=== PATIENT | male | born 1970 | race Caucasian/White ===

== ENCOUNTER 2017-03-24 04:03 | Inpatient (IN) | payer BC ==
[2017-03-24 07:24] LABS: #Eosinphils 0.4 thou/uL (0.0-0.7); #Lymphocytes 1.7 thou/uL (1.20-3.40); #Monocytes 0.7 thou/uL (0.11-0.59); #Neutrophils 11.5 thou/uL (1.40-6.50); %Basophils 0.3 % (0.0-1.0); %Eosinophils 2.8 % (0.0-10.0); %Monocytes 4.9 % (0.0-10.0); Hematocrit 42.4 % (42.0-52.0); Mean Platelet Volume 6.2 fL (7.4-10.4); Red Blood Cell (RBC) Count 4.35 mill/uL (4.70-6.10); White Blood Cell (WBC) Count 14.4 thou/uL (4.8-10.8)
[2017-03-24 07:36] LABS: Lactic Acid - Sepsis 0.8 mmol/L (0.5-2.2)
[2017-03-24 07:43] LABS: ALT (SGPT) 8 U/L (8-55); AST (SGOT) 11 U/L (5-34); Alkaline Phosphatase 113 U/L (40-150); Anion Gap 10 mmol/L (10-20); BUN (Urea Nitrogen) 8 mg/dL (8.9-20.6); Bilirubin, Total 0.4 mg/dL (0.2-1.2); Calc. Creatinine Clearance 0 mL/min (70-130); Calcium 9.1 mg/dL (7.8-10.44); Carbon Dioxide 23 mmol/L (22-29); Chloride 107 mmol/L (98-107); Estimated GFR-MDRD Greater than 90; Globulin 2.8 g/dL (2.4-3.5); Magnesium 1.9 mg/dL (1.6-2.6); Protein, Total 6.5 g/dL (6.0-8.3)
[2017-03-24 07:45] LABS: Troponin I Less than 0.010 ng/mL (< 0.028)
[2017-03-24] MEDS ORDERED: Piperacillin/Tazobactam 3.375 GM in Sodium Chloride 0.9% 100 ML IVPB ONE (07:45)
[2017-03-24] MEDS ORDERED: Morphine 4 MG/ML VIAL ONE (07:48)
[2017-03-24 08:23] LABS: Bilirubin Negative (Negative); Blood, Urine Negative (Negative); Glucose, Urine (Dipstick) Negative (Negative); Ketone, Urine Negative (Negative); Nitrite Negative (Negative); Protein, Urine (Dipstick) Negative (Neg-Trace); Urobilinogen 0.2 mg/dL (0.2-1.0)
[2017-03-24] MEDS ORDERED: Ondansetron HCl/PF 4 MG/2 ML Vial IVP PRN (09:38)
[2017-03-24] MEDS ORDERED: Enoxaparin Sodium 40 MG/0.4 ML SYRINGE SC SCH (10:30)
--- NOTE | 2017-03-24 13:20 | HP ---
DATE OF ADMISSION: 03/24/2017 CHIEF COMPLAINT: Abdominal pain. HISTORY OF PRESENT ILLNESS: The patient is a 46-year-old male, who is admitted to the hosp ital with acute onset of abdominal pain associated with some nausea, no vomiting since yesterday. He never had this kind of pain before according to him. He has a history of ulcerative colitis, but ac cording to him, he is under control at this point. He felt feverish for the last day or so. He marianna es any chills. He is denying any chest pain. The pain started in the epigastric area and it moved t o the left side of the abdomen. It was rated at severity of 10 and now is down to approximately 2-3. He did not vomit. He did not have any out of ordinary bowel movement changes since he has history of ulcerative colitis. PAST MEDICAL HISTORY: Positive for: 1. Ulcerative colitis. 2. History of Ping-Parkinson syndrome. PAST SURGICAL HISTORY: None. SOCIAL HISTORY: He denies any alcohol use, cigarette smoking, or illicit drug use. FAMILY HISTORY: Mother had breast cancer. Father is healthy. Both of them are alive. MEDICATIONS: Lialda 1.2 grams 2 tablets once a day, azathioprine 75 mg once a day, sertraline 25 mg once a day, and Effexor 25 mg once a day. ALLERGIES: None. REVIEW OF SYSTEMS: Fourteen systems were reviewed and they are only positive for those symptoms ment ioned in HPI. PHYSICAL EXAMINATION: GENERAL: He is in some pain during my evaluation. He is somewhat uncomfortable. HEAD: Atraumatic, normocephalic. VITAL SIGNS: His blood pressure is 152/106, his pulse oximetry is 97% on room air, his pulse is 87. EYES: PERRLA. Conjunctivae pinkish. ENT: Oral mucosa is somewhat dry. NECK: Supple, no lymphadenopathy. LUNGS: Clear. HEART: S1, S2 normal. No S3, no S4, no murmur. ABDOMEN: Soft. Abdomen is distended, somewhat tympanic in the right side, and there is some tendern ess in the left side of the abdomen on deeper palpation. There is mild guarding in this area. Bowel sounds are very active. EXTREMITIES: No clubbing, cyanosis, or edema. NEUROLOGIC: He is alert and oriented x4. There are not any sensorimotor deficits present. Cranial nerves are intact. LABORATORY AND X-RAY FINDINGS: Showed white count of 14.4, hemoglobin 14.5, hematocrit 42.4, platele t count is 298,000, neutrophils 79.9. Chemistry showed normal electrolytes, BUN of 8, creatinine 0.8 6, lactic acid was elevated at [facility] where he presented originally to and where he was transferred from to our facility. Repeated lactic acid in our facility was down to 0.8. His CK-MB was 0.6 and troponin I less than 0.010. Urinalysis was not done. EKG showed normal sinus rhy thm with a ventricular rate of 75. No ischemic changes. CT of the abdomen was done and it showed so me cholelithiasis, and mesenteric panniculitis. IMPRESSION: 1. Abdominal pain in a setting of patients with ulcerative colitis. It is unclear whether this is s omehow related to stones, which were found in the biliary tree. This is related to his ulcerative co litis. 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 The patient was given IV fluids a nd started on Zosyn. The plan is to continue both. He will be on normal saline 100 mL per hour and Zosyn 3.375 grams every 6 hours. I will obtain GI consultation with Dr. Corey, who is covering for Dr. Ga, his primary GI doctor. We will keep him n.p.o. and we will put the NG tube to decompress his abdomen. 2. History of Ipgyv-Qgrkwluhq-Iorva and status post ablation. PLAN: Full admission to medical floor. Condition is fair. Activity is bed rest and bathroom privil eges. NG tube, slow suctioning. IV fluids at 100 mL per hour, normal saline, morphine 4 mg every 2 hours p.r.n. as needed for the pain, Zosyn 3.375 grams every 6 hours IV piggyback. GI consultation w francis Corey and DVT prophylaxis with SCDs and PUD prophylaxis with Protonix 40 IV piggyback.
[2017-03-24] MEDS ORDERED: Acetaminophen 325 MG TAB PO PRN (13:26)
[2017-03-24] MEDS ORDERED: Ondansetron ODT 4 MG TAB SL PRN (13:26)
[2017-03-24] MEDS ORDERED: FLU VACC QS2017-18 36 mo. & older 0.5 ML SYRINGE IM ONE (13:45)
[2017-03-24] MEDS: Morphine 4 MG/ML VIAL SLOW IVP PRN ×2 (14:05→20:27)
[2017-03-24] MEDS: Sodium Chloride 0.9% 1,000 ML IV SCH ×4 (14:10→22:27)
[2017-03-24] MEDS: Piperacillin/Tazobactam 3.375 GM in Sodium Chloride 0.9% 100 ML IVPB SCH ×2 (15:00→20:27)
[2017-03-24] MEDS: Pantoprazole 40 MG VIAL IVP SCH (20:27)
[2017-03-25] MEDS: Piperacillin/Tazobactam 3.375 GM in Sodium Chloride 0.9% 100 ML IVPB SCH ×4 (01:07→20:28)
[2017-03-25 05:18] LABS: #Eosinphils 0.3 thou/uL (0.0-0.7); #Monocytes 0.9 thou/uL (0.11-0.59); #Neutrophils 10.8 thou/uL (1.40-6.50); %Basophils 0.1 % (0.0-1.0); %Eosinophils 2.5 % (0.0-10.0); %Lymphocytes 7.9 % (21.0-51.0); %Monocytes 6.9 % (0.0-10.0); Hematocrit 40.4 % (42.0-52.0); Mean Platelet Volume 6.4 fL (7.4-10.4); Red Blood Cell (RBC) Count 4.13 mill/uL (4.70-6.10)
[2017-03-25 05:37] LABS: Anion Gap 12 mmol/L (10-20); BUN (Urea Nitrogen) 5 mg/dL (8.9-20.6); Calc. Creatinine Clearance 137 mL/min (70-130); Calcium 8.8 mg/dL (7.8-10.44); Carbon Dioxide 24 mmol/L (22-29); Chloride 103 mmol/L (98-107); Estimated GFR-MDRD Greater than 90; Lipase 7 U/L (8-78)
[2017-03-25] MEDS: Sodium Chloride 0.9% 1,000 ML IV SCH ×2 (05:55→19:48)
--- NOTE | 2017-03-25 06:42 | CON ---
DATE OF CONSULTATION: 03/24/2017 HISTORY OF PRESENT ILLNESS: Mr. Carreno is a 46-year-old with a history of ulcerative colitis treated b y Dr. Douglas Ga. He is in remission at this time on azathioprine, Lialda, and Entyvio. He has b een on the Entyvio for about a year. Previously, he was on Remicade with good results but wore off a bout a year ago. He has 1-2 bowel movements a day, typically no bleeding and no tenesmus or abdomina l cramping with bowel movements. Yesterday, he had a pretty severe onset of epigastric pain, initial ly thought maybe it was indigestion and took some antacids but did not improve. It then radiated to the left abdomen and it got worse. He ultimately went to the emergency room in [place]. There he had some labs. Evaluation of the CAT scan showed possible mesenteric adenitis. He was treated wi some morphine, Zofran, and Toradol, transferred here. His lipase was elevated at 243 and amylase was 147. His white count was 13. He is feeling a little bit better here as long as he remains on pa in medications. When he had the pain, he did have some diaphoresis, but no nausea, no radiation into chest or back. 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 He states he had cardiac catheterization years ago and reviewing the records, it looks like he had a heart catheterization by Dr. Tomas in 10/2014, which was negative. He had some SV T and ultimately, he had EP treatment for this and has not recurred. The patient presently denies any nausea or vomiting, denies any NSAID use. He states he has not star emma any new medications. Reviewing his CAT scan, gallbladder, and liver was fine. Pancreas was reported unremarkable as is th e stomach. Colon looked normal. There is some increased attenuation in the root of the mesentery, s mall mesenteric lymph nodes consistent with "mesenteric panniculitis" per the radiologist. On re-alba ding this morning, he said it could be mesenteric adenitis or mesenteric "panniculitis." PAST MEDICAL HISTORY: 1. Ulcerative colitis diagnosed in 2015 per the noted treatment regimens. He does state that he harris ve his azathioprine dose upper and lowered a couple of times but based on blood counts. 2. History of Surae-Yptgtfnxx-Vvmic syndrome treated. 3. Depression, anxiety. PAST SURGICAL HISTORY: None. SOCIAL HISTORY: He denies any alcohol, drug use, or cigarette smoking. FAMILY HISTORY: Mother had breast cancer. Father is healthy. MEDICATIONS: Lialda, azathioprine, sertraline, Effexor, sometimes he takes ADHD medications. MEDICATIONS HERE: Effexor, normal saline at 125 an hour, Zoloft, Zosyn, Zofran, morphine, mesalamine , folic acid, azathioprine, acetaminophen. REVIEW OF SYSTEMS: The patient denies any dyspnea on exertion, denies any chest pain with exertion, denies any diaphoresis with this pain. PHYSICAL EXAMINATION: VITAL SIGNS: Temperature is 98, pulse 77, blood pressure is 146/87. LUNGS: Clear. HEART: Regular, without clicks or murmurs. ABDOMEN: Soft, nontender, without any palpable hepatosplenomegaly. Abdomen is notable for slight pr otuberant. Bowel sounds are positive. There is no rebound or guarding. EXTREMITIES: No clubbing, cyanosis, or edema. LABORATORY AND X-RAY FINDINGS: White count 14.4, hemoglobin 14.5, platelet count 298. Chemistries h ere today 7:00 in the morning, electrolytes were all normal. Amylase and lipase were not repeated. Troponins were negative; they were negative in [place], as well. ASSESSMENT: Epigastric pain of unclear etiology in light of recent bout not too long ago and had a s imilar bout today, could be reflux, could be peptic, could be pancreatitis in light of his elevated l ipase and use of azathioprine. It does not seem to be cardiac in light that he had pain ongoing when he arrived to the ER, had a normal EKG and normal troponins, and he has had a heart catheterization in the last couple of years which was normal. He has no risk factors. RECOMMENDATIONS: 1. Would keep him n.p.o. 2. Would continue IV fluids. 3. He can have his home medications except for his azathioprine. 4. We will place him on IV PPI if that has not been started and also check an EGD tomorrow.
[2017-03-25] MEDS: Pantoprazole 40 MG VIAL IVP SCH ×2 (08:50→20:28)
[2017-03-25] MEDS: Venlafaxine HCl XR 150 MG CAP PO SCH (08:51)
[2017-03-25] MEDS: Folic Acid 1 MG TAB PO SCH (08:51)
[2017-03-25] MEDS ORDERED: Propofol 200 MG/20 ML VIAL ONE (08:53)
[2017-03-25] MEDS ORDERED: azaTHIOprine 50 MG TAB PO SCH (09:00)
[2017-03-25 10:10] VITALS: BMI 27.7
[2017-03-25] MEDS ORDERED: Ondansetron HCl/PF 4 MG/2 ML Vial IVP PRN (11:00)
[2017-03-25] MEDS ORDERED: Promethazine HCl 25 MG/ML VIAL SLOW IVP PRN (11:00)
--- NOTE | 2017-03-25 11:34 | OP ---
DATE OF PROCEDURE: 03/25/2017 SURGEON: El Corey M.D. PREOPERATIVE DIAGNOSES: 1. Epigastric pain. 2. History of ulcerative colitis, on azathioprine and Entyvio as well as Lialda. 3. Mild elevation of amylase and lipase yesterday. 4. History of reflux. POSTOPERATIVE DIAGNOSES: 1. Erosion at GE junction consistent with reflux esophagitis. 2. Small hiatal hernia. 3. Otherwise, normal EGD. ANESTHESIA: TIVA. RECOMMENDATIONS: 1. PPI therapy. 2. Advance diet as tolerated. ANESTHESIA: TIVA. PROCEDURE IN DETAIL: After the patient was informed of the risks, benefits, possible complications o f endoscopy including perforation, bleeding, reactions to medication and aspiration, informed consent was obtained. The patient brought to endoscopy suite where he was sedated in a gradual fashion. On ce he was comfortable, a bite block was placed in incisural orifice. The endoscope was advanced thro ugh the esophagus, stomach and second and third portion of duodenum and slowly removed. There was go od visualization of mucosa. There was no ulcer seen in the stomach. There was a sliding type hiatal hernia about 3-4 cm in size with no erosions or ulcerations. Retroflexed views were normal. The GE junction was notable for an erosions consistent with LA grade B reflux esophagitis. There was no ev idence of Franco's or Franco's like changes. The duodenum was normal to the third portion. The sc ope was removed. The patient tolerated the procedure well with no complications.
[2017-03-25] MEDS: Enoxaparin Sodium 40 MG/0.4 ML SYRINGE SC SCH (12:40)
[2017-03-25] MEDS: Morphine 4 MG/ML VIAL SLOW IVP PRN (13:45)
[2017-03-25] MEDS: Mesalamine DR 400 mg Capsule PO SCH (13:46)
--- NOTE | 2017-03-25 16:54 | PDOC.PN ---
- Subjective Encounter Start Date: 03/25/17 Encounter Start Time: 16:54 Subjective: Seen and examined complaining of one sided headache - Objective Resuscitation Status: Resuscitation Status FULL:Full Resuscitation Vital Signs & Weight: Vital Signs (12 hours) Temp Pulse Resp BP Pulse Ox 03/25/17 15:39 98.4 F 91 18 117/73 94 L 03/25/17 11:25 98.1 F 88 17 130/80 96 03/25/17 08:46 98.4 F 99 18 136/90 96 03/25/17 08:00 98.1 F 88 17 96 Weight Admit Weight 208 lb 1.6 oz Weight 210 lb 4.8 oz I&O: 03/24/17 03/25/17 03/26/17 06:59 06:59 06:59 Intake Total 2075 Output Total 520 Balance 1555 Result Diagrams: 03/25/17 04:27 03/25/17 04:27 Phys Exam - Physical Examination Constitutional: NAD HEENT: PERRLA, moist MMs, sclera anicteric, TM's clear Neck: no nodes, no JVD, supple, full ROM Respiratory: no wheezing, no rales, no rhonchi, clear to auscultation bilateral Cardiovascular: RRR, no significant murmur, no rub Gastrointestinal: soft, non-tender, no distention, positive bowel sounds Musculoskeletal: no edema, pulses present Neurological: non-focal, moves all 4 limbs Lt sided headache with photophobia Psychiatric: normal affect, A&O x 3 Dx/Plan (1) Migraine Code(s): G43.909 - MIGRAINE, UNSP, NOT INTRACTABLE, WITHOUT STATUS MIGRAINOSUS Status: Acute (2) Reflux esophagitis Code(s): K21.0 - GASTRO-ESOPHAGEAL REFLUX DISEASE WITH ESOPHAGITIS Status: Acute (3) Ulcerative colitis Code(s): K51.90 - ULCERATIVE COLITIS, UNSPECIFIED, WITHOUT COMPLICATIONS Status: Acute - Plan plan discussed w/ family Appreciate GI input and EGD result noted -: Start Imitrex -: D/c IVF * .
[2017-03-25] MEDS ORDERED: SUMAtriptan Succinate 25 MG TAB PO SCH (17:00)
[2017-03-25] MEDS ORDERED: SUMAtriptan Succinate 50 MG TAB PO PRN (17:00)
[2017-03-26] MEDS: Piperacillin/Tazobactam 3.375 GM in Sodium Chloride 0.9% 100 ML IVPB SCH ×3 (01:16→15:15)
[2017-03-26 08:16] VITALS: TEMP 98.1
[2017-03-26] MEDS: Venlafaxine HCl XR 150 MG CAP PO SCH (09:27)
[2017-03-26] MEDS: Pantoprazole 40 MG VIAL IVP SCH (09:27)
[2017-03-26] MEDS: Enoxaparin Sodium 40 MG/0.4 ML SYRINGE SC SCH (09:27)
[2017-03-26] MEDS: Folic Acid 1 MG TAB PO SCH (09:27)
--- NOTE | 2017-03-26 12:20 | PRG ---
DATE OF SERVICE: 03/26/2017 SUBJECTIVE: Mr. Carreno had a couple of loose stools today. His abdomen is softer and his abdominal pa in is markedly improved. He is tolerating a solid diet. OBJECTIVE: VITAL SIGNS: Temperature 98.1, pulse 81, blood pressure 129/85. GENERAL: He is in no acute distress, alert and oriented x3. LUNGS: Clear to auscultation bilaterally. HEART: Regular rate and rhythm. ABDOMEN: Soft, minimal tenderness, without guarding. Bowel sounds are present. EXTREMITIES: No lower extremity edema. LABORATORY DATA: White blood cell count 13.0 yesterday. His lipase has improved from 234 to 7. IMPRESSION: 1. Azathioprine induced acute pancreatitis. This has clinically resolved and was mild to begin with . 2. Chronic ulcerative colitis, clinically in remission. He has had some loose stools today. We tiffani l follow this further as an outpatient. 3. Headache. He was given Imitrex yesterday and his headache is better today. RECOMMENDATIONS: 1. Azathioprine has been discontinued. 2. We will continue Entyvio as the primary treatment for his ulcerative colitis. His next dose is i n a couple weeks. 3. Continue Lialda 2 tablets daily. 4. We will follow up in GI Clinic as planned for a couple of months. If his symptoms worsen after h aving discontinued azathioprine then will call and schedule more immediate followup in the office. A t that point, we might have to consider methotrexate as a substitution for the azathioprine however, at this point, we should be able to just get by with the Lialda and the Entyvio alone. 5. Anticipate discharge home today. I will sign off. Please call if GI can be of assistance.
--- NOTE | 2017-03-26 13:27 | DIS ---
DATE OF ADMISSION: 03/24/2017 DATE OF DISCHARGE: 03/26/2017 DISCHARGE DIAGNOSES: 1. Azathioprine induced pancreatitis, better. 2. Status post EGD showing esophagitis and small hiatal hernia, stable. 3. Ulcerative colitis, stable. 4. Headache probably tension headache, stable. 5. History of Ixvai-Asonlqffi-Mvowb syndrome, stable. DISCHARGE MEDICATIONS: Include all home medications except azathioprine and Protonix 40 mg p.o. olesya nash CONSULTANTS ON THE CASE: GI. STUDIES DONE THIS HOSPITAL STAY: CT scan which showed panniculitis and EGD which showed esophagitis and small hiatal hernia. BRIEF HOSPITAL COURSE: A 46-year-old pleasant gentleman came in to the hospital with abdominal pain. Please refer to the admitting physician's H&P for further details. The patient was kept n.p.o., wa s given pain medications, IV fluids. Since lipase was high GI thought it was probably more medicatio n induced pancreatitis. They stopped the azathioprine. The patient's pain resolved. Lipase has com e back to normal. He tolerated p.o. intake. The patient right now is medically stable to be dischar [facility]. Plan is to discontinue azathioprine. Will continue the Entyvio as the primary treatment for ul cerative colitis. Continue Lialda 2 tablets daily. He was asked to follow up with GI Clinic in a co uple months and is asked come back to the GI and PCP in case the pain worsens. The patient will be d ischarged today. He is asked to come back to the emergency room as well in case the patient worsens. The patient is medically stable to be discharged. PHYSICAL EXAMINATION: VITAL SIGNS: At the time of discharge was afebrile, pulse of 81, blood pressure was 129/85. GENERAL: The patient was lying in bed in no apparent distress. HEENT: Atraumatic and normocephalic. Pupils equal, round, react to light. Extraocular movements in tact. Mucous membranes moist. NECK: No JVD. CHEST: Breath sounds heard. There are no rales or rhonchi. HEART: S1, S2, no murmurs or gallops. ABDOMEN: Soft, minimal tenderness, without guarding. Bowel sounds are present. EXTREMITIES: No cyanosis, clubbing or edema. Distal pulses present. The patient is medically stable to be discharged. He will be seen by PCP and GI as an outpatient and asked to come back to the emergency room in case symptoms recur. Total time for this discharge took 35 minutes.
[2017-03-26 14:43] VITALS: BP 129/84
[2017-03-26] MEDS: Mesalamine DR 400 mg Capsule PO SCH (15:15)
== END 2017-03-26 15:17 | disposition home or self-care (01) | DRG 439 ==
LOC: ERS 04:03 → ERHOLD 08:31 → 2NO 13:09
PROVIDERS: ADMIT Internal Medicine; ATTEND Internal Medicine
PROC: 0DJ08ZZ Inspection of Upper Intestinal Tract, Via Natural or Artificial Opening Endoscopic (ICD-10-PCS; principal; 2017-03-25)
DX: K85.30 Drug induced acute pancreatitis without necrosis or infection (principal); K51.90 Ulcerative colitis, unspecified, without complications; G43.909 Migraine, unspecified, not intractable, without status migrainosus; K21.0 Gastro-esophageal reflux disease with esophagitis; K44.9 Diaphragmatic hernia without obstruction or gangrene; T45.1X5A Adverse effect of antineoplastic and immunosuppressive drugs, initial encounter; G44.209 Tension-type headache, unspecified, not intractable
CPT/HCPCS: 36415; 80048; 80053; 82150; 82553; 83605; 83690; 83735; 84484; 85025; 93005; 96361; 96365; 96375; C9113; J1650; J2270; J2543; J2704; J7050

== ENCOUNTER 2017-08-04 22:23 | Emergency (ER) | payer BC, OTHER ==
[~2017-08-04 22:23] MED LIST: ISOVUE-370 76%-LOCM 1 ML ONE; Iopamidol 370 76% 50 ML VIAL FS ONE
[2017-08-04 23:13] LABS: #Basophils 0.1 thou/uL (0.0-0.2); #Eosinphils 0.4 thou/uL (0.0-0.7); #Monocytes 0.8 thou/uL (0.11-0.59); #Neutrophils 7.7 thou/uL (1.40-6.50); %Basophils 0.6 % (0.0-1.0); %Eosinophils 3.3 % (0.0-10.0); %Lymphocytes 18.5 % (21.0-51.0); %Monocytes 7.3 % (0.0-10.0); %Neutrophils 70.2 % (42.0-75.0); Hemoglobin 13.9 g/dL (14.0-18.0); Mean Corpuscular Hemoglobin 31.5 pg (27.0-31.0); Mean Corpuscular Volume 90.2 fl (80.0-94.0); Mean Platelet Volume 5.9 fL (7.4-10.4); Platelet Count 367 thou/uL (130-400); RBC Distribution Width 12.3 % (11.5-14.5); White Blood Cell (WBC) Count 10.9 thou/uL (4.8-10.8)
[2017-08-04 23:33] LABS: ALT (SGPT) 14 U/L (8-55); AST (SGOT) 11 U/L (5-34); Albumin 3.9 g/dL (3.5-5.0); Alkaline Phosphatase 141 U/L (40-150); Anion Gap 13 mmol/L (10-20); BUN (Urea Nitrogen) 7 mg/dL (8.9-20.6); Bilirubin, Total 0.2 mg/dL (0.2-1.2); CK (CPK) 37 U/L (30-200); Calc. Creatinine Clearance 0 mL/min (70-130); Calcium 8.9 mg/dL (7.8-10.44); Carbon Dioxide 21 mmol/L (22-29); Chloride 107 mmol/L (98-107); Estimated GFR-MDRD Greater than 90; Globulin 2.8 g/dL (2.4-3.5); Glucose 110 mg/dL (70-105); Lipase 92 U/L (8-78); Potassium 3.8 mmol/L (3.5-5.1); Protein, Total 6.7 g/dL (6.0-8.3); Sodium 137 mmol/L (136-145)
[2017-08-04 23:37] LABS: CKMB 0.5 ng/mL (0-6.6); Troponin I Less than 0.010 ng/mL (< 0.028)
--- NOTE | 2017-08-04 23:51 | RAD ---
PORTABLE CHEST ONE VIEW: Date: 08-04-17 Time: 11:29 p.m. History: Abdominal pain, nausea, vomiting. FINDINGS: Comparison is made with exam of 03-23-17. The heart size is normal. The lungs are expanded without focal areas of consolidation, pneumothorax, or pleural effusions. IMPRESSION: No radiographic evidence of acute cardiopulmonary process. POS: [facility]
[2017-08-05] MEDS ORDERED: predniSONE 20 MG TAB ONE (02:03)
--- NOTE | 2017-08-05 08:59 | CT ---
PRELIMINARY REPORT/[facility]/EMERGENTY AFTER-HOURS PROCEDURE CT Abdomen and Pelvis With Intravenous Contrast CLINICAL HISTORY: 47 years old, male; Pain; Abdominal pain; Generalized TECHNIQUE: Axial computed tomography images of the abdomen and pelvis with intravenous contrast. Coronal reforma tted images were created and reviewed. CONTRAST: 100 mL of ISOVUE administered intravenously. COMPARISON: No relevant prior studies available. FINDINGS: Lung bases: Unremarkable. No mass. No consolidation. ABDOMEN: Liver: Hepatomegaly and diffuse fatty infiltration No mass. Gallbladder and bile ducts: Calcified skull down through the gallbladder wall calcifications. No duct al dilation. Pancreas: Unremarkable. No mass. No ductal dilation. Spleen: Unremarkable. No splenomegaly. Adrenals: Unremarkable. No mass. Kidneys and ureters: Unremarkable. No solid mass. No hydronephrosis. Stomach and bowel: Minimal colonic diverticulosis No obstruction. No mucosal thickening. PELVIS: Appendix: No findings to suggest acute appendicitis. Bladder: Unremarkable. No mass. Reproductive: Unremarkable as visualized. ABDOMEN and PELVIS: Intraperitoneal space: Unremarkable. No free air. No significant fluid collection. Bones/joints: No acute fracture. No dislocation. Soft tissues: Unremarkable. Vasculature: Unremarkable. No abdominal aortic aneurysm. Lymph nodes: Prominent mesenteric lymph nodes with minimal surrounding infiltration IMPRESSION: Calcified gallstones versus gallbladder wall calcifications. Consider right upper quadrant ultrasound for further evaluation as clinically indicated Question minimal mesenteritis/adenitis Minimal colonic diverticulosis without diverticulitis Thank you for allowing us to participate in the care of your patient. Dictated and Authenticated by: Nima Garcia MD 08/05/2017 1:40 AM Central Time ([place] & [place]) FINAL REPORT CONTRAST ENHANCED CT IMAGES ABDOMEN AND PELVIS: FINDINGS: Final report. Preliminary exam was performed by [facility]. I concur with the dictation from [facility]. Comparison is made to a previous CT from 03/24/17. Contrast-enhanced CT images of the abdomen and pelvis were obtained. The lung bases are unremarkable. The liver and spleen again are unremarkable. Some small areas of c alcification seen in the gallbladder lumen which may represent small gallstones versus gallbladder wa ll which is developing calcification. This was not present on the previous CT from approximately 4 m onths earlier. The pancreas is unremarkable. Adrenal glands and kidneys are unremarkable. There continue to be tj e enlarged lymph nodes in the mesentery with some inflammatory change seen in the mesenteric root com patible with mesenteric adenitis and edgard mesentery findings. Elective GI consultation is recommended. IMPRESSION: 1. Findings compatible with mesenteric adenitis. 2. Possible developing gallbladder disease.
== END 2017-08-05 02:00 | disposition home or self-care (01) ==
LOC: ERS 22:23
DX: K51.90 Ulcerative colitis, unspecified, without complications (principal); K52.9 Noninfective gastroenteritis and colitis, unspecified; Z79.899 Other long term (current) drug therapy
CPT/HCPCS: 71045; 74177; 80053; 82550; 82553; 83605; 83690; 84484; 85025; 93005; J7506

== ENCOUNTER 2018-01-17 11:11 | Outpatient (CLI) | payer BC ==
--- NOTE | 2018-01-17 12:21 | ULT ---
HEPATIC SONOGRAM WITH DUPLEX EVALUATION: HISTORY: Abnormal liver function tests. FINDINGS: Echogenic stones fill the incompletely distended gallbladder lumen. No pericholecystic fluid or gall bladder wall thickening. The common duct is 0.5 cm. The liver is heterogeneous without focal mass o r intrahepatic biliary dilatation. No free fluid. The spleen is 10.6 cm in length. Good color and spectral Doppler flow within the hepatic and splenic arteries. Portal venous flow is toward the liver. Hepatic venous flow is toward the IVC. IMPRESSION: 1. Cholelithiasis. No evidence of acute biliary obstruction. 2. No evidence of portal venous hypertension. POS: [facility]
== END 2018-01-17 11:12 | disposition home or self-care (01) ==
LOC: BICULT 11:11
PROVIDERS: ATTEND Internal Medicine Gastroenterology
DX: R74.8 Abnormal levels of other serum enzymes (principal); K80.20 Calculus of gallbladder without cholecystitis without obstruction
CPT/HCPCS: 36415; 76705; 80076; 82977; 83516; 83540; 83550; 85610; 86704; 86706; 86709; 86803; 87340

== ENCOUNTER 2018-12-31 18:50 | Emergency (ER) | payer BC, OTHER ==
[2018-12-31 20:31] LABS: #Basophils 0.1 thou/uL (0.0-0.2); #Eosinphils 0.5 thou/uL (0.0-0.7); #Lymphocytes 1.9 thou/uL (1.20-3.40); #Monocytes 0.5 thou/uL (0.11-0.59); #Neutrophils 2.7 thou/uL (1.40-6.50); %Basophils 1.3 % (0.0-1.0); %Eosinophils 8.2 % (0.0-10.0); %Lymphocytes 33.9 % (21.0-51.0); %Monocytes 8.4 % (0.0-10.0); %Neutrophils 48.2 % (42.0-75.0); Hemoglobin 13.6 g/dL (14.0-18.0); Mean Corpuscular HGB CONC 34.6 g/dL (32.0-36.0); Mean Corpuscular Hemoglobin 30.7 pg (27.0-31.0); Mean Corpuscular Volume 88.7 fL (78.0-98.0); Mean Platelet Volume 6.5 fL (7.4-10.4); Platelet Count 338 thou/uL (130-400); RBC Distribution Width 12.8 % (11.5-14.5); Red Blood Cell (RBC) Count 4.45 mill/uL (4.70-6.10); White Blood Cell (WBC) Count 5.6 thou/uL (4.8-10.8)
[2018-12-31 20:52] LABS: ALT (SGPT) 26 U/L (8-55); AST (SGOT) 17 U/L (5-34); Albumin 3.9 g/dL (3.5-5.0); Alkaline Phosphatase 171 U/L (40-110); Anion Gap 12 mmol/L (10-20); BUN (Urea Nitrogen) 8 mg/dL (8.9-20.6); Bilirubin, Total 0.2 mg/dL (0.2-1.2); Calc. Creatinine Clearance 0 mL/min (70-130); Calcium 9.2 mg/dL (7.8-10.44); Carbon Dioxide 25 mmol/L (22-29); Chloride 105 mmol/L (98-107); Estimated GFR-MDRD Greater than 90; Globulin 3.2 g/dL (2.4-3.5); Glucose 97 mg/dL (70-105); Potassium 3.7 mmol/L (3.5-5.1); Protein, Total 7.1 g/dL (6.0-8.3); Sodium 138 mmol/L (136-145)
[2018-12-31] MEDS ORDERED: predniSONE 20 MG TAB ONE (22:23)
== END 2018-12-31 22:42 | disposition home or self-care (01) ==
LOC: ERS 18:50
DX: K51.90 Ulcerative colitis, unspecified, without complications (principal); I49.9 Cardiac arrhythmia, unspecified; Z79.899 Other long term (current) drug therapy
CPT/HCPCS: 80053; 85025; 96360; J7512

== ENCOUNTER 2019-09-07 13:22 | Inpatient (IN) | payer BC ==
[2019-09-07 16:05] VITALS: BMI 26.4
[2019-09-07] MEDS ORDERED: Acetaminophen 325 MG TAB PO PRN (17:23)
[2019-09-07] MEDS ORDERED: Sodium Chloride 0.9% 1,000 ML IV SCH (17:30)
[2019-09-07 17:36] LABS: #Basophils 0.1 thou/uL (0.0-0.2); #Eosinphils 0.1 thou/uL (0.0-0.7); #Monocytes 0.2 thou/uL (0.11-0.59); #Neutrophils 9.7 thou/uL (1.40-6.50); %Basophils 0.5 % (0.0-1.0); %Lymphocytes 9.2 % (21.0-51.0); %Monocytes 1.9 % (0.0-10.0); %Neutrophils 87.5 % (42.0-75.0); Hemoglobin 14.5 g/dL (14.0-18.0); Mean Corpuscular HGB CONC 32.2 g/dL (32.0-36.0); Mean Corpuscular Hemoglobin 29.4 pg (27.0-31.0); Mean Corpuscular Volume 91.3 fL (78.0-98.0); Mean Platelet Volume 6.8 fL (7.4-10.4); Platelet Count 323 thou/uL (130-400); RBC Distribution Width 13.1 % (11.5-14.5); Red Blood Cell (RBC) Count 4.91 mill/uL (4.70-6.10); White Blood Cell (WBC) Count 11.1 thou/uL (4.8-10.8)
[2019-09-07 18:11] LABS: ALT (SGPT) 36 U/L (8-55); AST (SGOT) 17 U/L (5-34); Albumin 3.9 g/dL (3.5-5.0); Alkaline Phosphatase 111 U/L (40-110); Anion Gap 11 mmol/L (10-20); BUN (Urea Nitrogen) 13 mg/dL (8.4-25.7); Bilirubin, Total 0.3 mg/dL (0.2-1.2); CRP (Inflammatory) Less than 0.50 mg/dL (= or < 0.5); Calc. Creatinine Clearance 117 mL/min (70-130); Carbon Dioxide 25 mmol/L (22-29); Chloride 104 mmol/L (98-107); Estimated GFR-MDRD 83; Globulin 2.7 g/dL (2.4-3.5); Glucose 109 mg/dL (70-105); Protein, Total 6.6 g/dL (6.0-8.3); Sodium 136 mmol/L (136-145)
--- NOTE | 2019-09-07 18:13 | HP ---
PRIMARY CARE PHYSICIAN: Madeline Ramirez. FIELD GAUGER: Dr. Ga. CHIEF COMPLAINT: Ulcerative colitis exacerbation. HISTORY OF PRESENT ILLNESS: The patient is a 49-year-old male with a past medical history significant for ulcerative colitis and depression, who presents to the hospital as a direct admit from Dr. Ga for an ulcerative colitis exacerbation. The patient and spouse report that over the past several weeks, the patient has been experiencing an ulcerative colitis exacerbation. He is reporting 4 to 5 loose stools per day. Stools appear mucoid with blood. He denies any associated abdominal pain, nausea, or vomiting. He is able to eat his regular diet. He denies any recent hospitalization or antibiotic therapy or ingestion uncooked foods. He is on mesalamine. He takes Levsin and Lomotil p.r.n. He is having to take Lomotil daily to stop his diarrhea. Otherwise, he will have continuous loose stools. He reports some associated generalized weakness. He denies any fevers or chills. He denies any chest pains or lightheadedness. He did report that he gets Entyvio infusions once a month. His last one was on 08/12/19. The following week, on 08/19/19, he had colonoscopy. Dr. Ga saw bowel inflammation. He was started on a steroid taper 40 mg over the last two weeks. His states that he usually feels better a couple of days after starting the steroid taper, however, he has not. He still feels generally weak. So he is admitted to the hospital for further evaluation per Dr. Ga. MEDICATIONS: 1. Effexor 300 mg p.o. daily. 2. Zoloft 100 mg, takes two tabs p.o. daily. 3. Lomotil 1 tab p.o. q.6 p.r.n. 4. Levsin one tab sublingually q.6 p.r.n. Both Lomotil and Levsin are for diarrhea and abdominal cramping. 5. Mesalamine 1.2 g two tabs p.o. daily. 6. Protonix 40 mg p.o. daily. 7. Adderall XR 30 mg one tab p.o. q.a.m. and one tab p.o. at lunch p.r.n. anxiousness. ALLERGIES: THE PATIENT REPORTS NO KNOWN DRUG ALLERGIES. PAST MEDICAL HISTORY: 1. Ulcerative colitis, chronic. 2. Depression. 3. Arrhythmia. PAST SURGICAL HISTORY: Cardiac cath with ablation 3 to 4 years ago. SOCIAL HISTORY: The patient lives at [place] with his . He is semi-retired. He denies any tobacco use, EtOH intake, or illicit drug use. FAMILY HISTORY: Family history is noncontributory to this case. REVIEW OF SYSTEMS: All other review of systems are negative unless otherwise noted in the HPI. PHYSICAL EXAMINATION: VITAL SIGNS: Temperature 97.8, blood pressure 146/92, pulse 99, respirations 18 , 95% on room air. LABORATORY DATA: There is no lab work at this time as he is a direct admit. IMPRESSION AND PLAN: 1. Ulcerative colitis exacerbation. The patient is a direct admit to the medical floor inpatient status by Dr. Ga. Expected length of stay greater than 2 midnights. The patient reports having 4 to 5 loose stools daily with mucus and blood in them. Colonoscopy confirmed that he is having an ulcerative colitis exacerbation. He has been taking Lomotil daily to help bring it under control. He denies any abdominal pain, vomiting, fever, or chills. He is not lightheaded. No chest pain. The plan is to get basic labs, CRP, stool studies. Start him on a clear liquid diet. Start IV steroids. Consult Dr. Ga and put him on contact precautions until stool studies return Get a CMP and a CBC and start IV fluids. 2. Depression. The patient takes Effexor and Zoloft daily. We will restart his home medication. He denies any suicidal or homicidal ideation at this time. 3. Arrhythmia, unknown. The patient had a cardiac cath with ablation approximately 3 to 4 years ago for an unknown arrhythmia. VSS. 4. SCDs for DVT prophylaxis. Protonix for GI prophylaxis. The patient is a full code. Medical power of litigation attorney is his spouse, Naomi Carreno , #[phone]. Discussed the case with Dr. Nowak. Job ID: [id number] [facility]
--- NOTE | 2019-09-07 19:04 | PDOC.EVN ---
Event Note - Event Note Event Note: Chart reviewed. Patient seen and examined. Discussed with EMMANUEL Tang Díaz. Agree with plan of care as documented. 49 yo man sent from GI clinic for diarrhea. VSS. S1, S2, reg. Lungs CTA> A/P: 1. exacerbation of ulcerative colitis 2. h/o depression - IV fluids - IV steroids - GI consult - stool studies
[2019-09-07] MEDS: Sodium Chloride 0.9% 1,000 ML IV SCH (19:42)
[2019-09-07] MEDS: methylPREDNISolone Sod Succ 40 MG VIAL IVP SCH (22:00)
--- NOTE | 2019-09-07 23:13 | CON ---
DATE OF CONSULTATION: 09/07/2019 REASON FOR CONSULT: Ulcerative colitis. HISTORY OF PRESENT ILLNESS: Mr. Carreno is a 49-year-old gentleman with a long history of ulcerative colitis, pancolitis, taken care of by my partner, Dr. Tracy Ga. About 2 weeks ago, he began to have a flare with diarrhea and was placed on a steroid taper, things did not improve much. At home, he was taking some Imodium 2 to 3 times per day and also hyoscyamine. With worsening symptoms today, his called the office and decided to admit him for IV steroids. He denies any fever, chills, worsening abdominal pain, or distention. He has about 4 urges of tenesmus in the morning before lunch and then maybe 2 or 3 in the afternoon and 1 or 2 in the evening. He denies any recent antibiotics. He has not missed any medications. He denies any nausea, vomiting, fever, or chills. He has had no rashes, arthralgias, myalgias. The disease history was diagnosed in about 2011. He was treated with Asacol and azathioprine for a time, then placed on Remicade which worked for about a year and then became ineffectual. He ultimately was started on Entyvio, which was dosed every 8 weeks and then a drug level showed to be low toward the end of the trough and he was switched to every 6 weeks, but now he is having troubles again. In fact, even before symptoms began about 3 weeks ago, he had a colonoscopy with Dr. Ga for surveillance and he had significantly active disease, but no real symptoms at that time. PAST MEDICAL HISTORY: Mild depression and ulcerative colitis. PAST SURGICAL HISTORY: Heart catheterization once was normal. ALLERGIES: NONE. MEDICATIONS: At home, Tylenol, mesalamine 1.2 g tablets 2 daily, prednisone taper, Levsin p.r.n., folic acid 0.8 mg daily, fiber, sertraline, venlafaxine 300 mg a day, vitamin D, Protonix. Medications here are Tylenol, mesalamine 2.4 a day, 40 mg of Solu-Medrol IV q.8, Protonix, Zoloft 100 mg daily, venlafaxine 300 mg daily with saline flush. FAMILY HISTORY: Negative for colorectal cancer or ulcerative colitis. SOCIAL HISTORY: Negative for alcohol, drugs, tobacco. His is here at the bedside. REVIEW OF SYSTEMS: As per HPI, otherwise negative for shortness of breath, dyspnea on exertion, leg swelling. PHYSICAL EXAMINATION: VITAL SIGNS: Temperature 97, pulse 99, blood pressure is 146/92. GENERAL: He is resting in bed. HEENT: Oropharynx, no lesions, ulcers, or erosions. Conjunctiva is clear. There is no evidence of uveitis. NECK: Supple without adenopathy. LUNGS: Clear. HEART: Has sinus tachycardia, mild, 99. ABDOMEN: Soft. Positive bowel sounds. Slightly protuberant. No rebound. No guarding. No palpable hepatosplenomegaly. EXTREMITIES: No clubbing, cyanosis, or edema. LABORATORY STUDIES: White count 11.1, hemoglobin 14.5, platelet count 323. Sodium 136, potassium 4, BUN and creatinine 11 and 0.6. Liver function tests normal. Alkaline phosphatase was 111, albumin 3.9. CRP is 0.5. ASSESSMENT: Long history of ulcerative colitis with [id number], in and out of remission. Most recently had a colonoscopy for surveillance about 3 weeks ago that showed active disease, though he had not many symptoms at that time. He has progressed over the past 3 weeks and he has failed outpatient trial of oral steroids. No overt signs of fulminant colitis or toxic megacolon at this time. CRP is actually pretty normal. RECOMMENDATIONS: 1. IV Solu-Medrol IV q.8. 2. We will check to see if we can get a drug level sent out to the speciality lab on Entyvio levels and antibodies to see if he would benefit from increased dose or decreased dose interval. If this is not the case and we cannot get his disease under control, the next step would be a trial of Stelara. If we cannot get his disease under control, the next step would be sigmoidoscopy to confirm active disease and then considering colectomy. He actually states that he has talked about this in the past and has talked to Dr. Ga about it and thinks he is getting close to that point where he would just rather get his colon taken out. I did explain to him that that would hopefully just be an elective procedure that we would schedule in [place], however, have an urgent procedure here. 3. We will continue present medications. 4. We will check stool for C. difficile. We will follow along with you during the hospitalization. Job ID: [id number]
[2019-09-08 05:31] LABS: #Lymphocytes 0.9 thou/uL (1.20-3.40); #Monocytes 0.2 thou/uL (0.11-0.59); #Neutrophils 11.5 thou/uL (1.40-6.50); %Basophils 0.2 % (0.0-1.0); %Eosinophils 0.1 % (0.0-10.0); %Lymphocytes 7.1 % (21.0-51.0); %Monocytes 1.3 % (0.0-10.0); %Neutrophils 91.3 % (42.0-75.0); Hemoglobin 13.9 g/dL (14.0-18.0); Mean Corpuscular HGB CONC 32.9 g/dL (32.0-36.0); Mean Corpuscular Hemoglobin 30.3 pg (27.0-31.0); Mean Corpuscular Volume 92.2 fL (78.0-98.0); Mean Platelet Volume 6.8 fL (7.4-10.4); Platelet Count 312 thou/uL (130-400); RBC Distribution Width 12.9 % (11.5-14.5); Red Blood Cell (RBC) Count 4.57 mill/uL (4.70-6.10); White Blood Cell (WBC) Count 12.6 thou/uL (4.8-10.8)
[2019-09-08 05:51] LABS: Anion Gap 11 mmol/L (10-20); BUN (Urea Nitrogen) 10 mg/dL (8.4-25.7); Calc. Creatinine Clearance 133 mL/min (70-130); Calcium 8.4 mg/dL (7.8-10.44); Carbon Dioxide 26 mmol/L (22-29); Chloride 106 mmol/L (98-107); Estimated GFR-MDRD Greater than 90; Glucose 131 mg/dL (70-105); Potassium 4.1 mmol/L (3.5-5.1); Sodium 139 mmol/L (136-145)
[2019-09-08] MEDS: methylPREDNISolone Sod Succ 40 MG VIAL IVP SCH ×3 (06:13→21:11)
[2019-09-08] MEDS: Sodium Chloride 0.9% 1,000 ML IV SCH ×2 (06:14→21:11)
[2019-09-08] MEDS: Mesalamine DR 400 mg Capsule PO SCH (08:09)
[2019-09-08] MEDS: Venlafaxine HCl XR 75 MG CAP PO SCH (08:09)
[2019-09-08] MEDS ORDERED: MESALAMINE PO SCH (09:00)
[2019-09-08] MEDS ORDERED: VENLAFAXINE HCL 300 MG PO SCH (09:00)
--- NOTE | 2019-09-08 15:16 | PDOC.HOSPP ---
- Subjective Encounter Date: 09/08/19 Encounter Time: 08:40 Subjective: Pt seen for followup re: ulcerative colitis flare. Feels better today. - Objective Vital Signs & Weight: Vital Signs (12 hours) Temp Pulse Resp BP BP Pulse Ox 09/08/19 11:10 97.9 F 79 20 138/90 98 09/08/19 07:16 97.6 F 75 20 122/79 98 09/08/19 04:00 98.0 F 67 20 110/71 96 Weight Admit Weight 200 lb Weight 200 lb Result Diagrams: 09/08/19 05:09 09/08/19 05:09 Additional Labs: Labs and MARs reviewed by [facility] Hospitalist ROS - Review of Systems Constitutional: denies: fever, chills, sweats, weakness, malaise Cardiovascular: denies: chest pain, palpitations, orthopnea, paroxysmal noc. dyspnea, edema, light headedness Gastrointestinal: reports: diarrhea. denies: nausea, vomiting, abdominal pain, constipation, melena, hematochezia Genitourinary: denies: dysuria, frequency, incontinence, hematuria, retention Musculoskeletal: denies: neck pain, shoulder pain, arm pain, back pain, hand pain, leg pain, foot pain - Medication Medications: Active Medications Generic Name Dose Route Start Last Admin Trade Name Freq PRN Reason Stop Dose Admin Sodium Chloride 1,000 mls @ 75 mls/hr 09/07/19 19:00 09/08/19 06:14 Normal Saline 0.9% IV 1,000 mls .[id number] NICOLE Administration Mesalamine 2,400 mg 09/08/19 09:00 09/08/19 08:[address] PO 2,400 mg DAILY NICOLE Administration Methylprednisolone Sodium Succinate 40 mg 09/07/19 22:00 09/08/19 14:35 Solu-Medrol IVP 40 mg Q8HR NICOLE Administration Pantoprazole Sodium 40 mg 09/08/19 09:00 09/08/19 08:09 Protonix PO 40 mg DAILY NICOLE Administration Sertraline HCl 100 mg 09/08/19 09:00 09/08/19 08:09 Zoloft PO 100 mg DAILY NICOLE Administration Venlafaxine HCl 300 mg 09/08/19 09:00 09/08/19 08:09 Effexor Xr PO 300 mg DAILY NICOLE Administration - Exam General Appearance: awake alert Eye: anicteric sclera ENT: moist mucosa Neck: supple, symmetric, no thyromegaly, no lymphadenopathy Heart: RRR, no gallops, no rubs, normal peripheral pulses Respiratory: CTAB, no wheezes, no rales, no ronchi Gastrointestinal: soft, non-tender, non-distended, normal bowel sounds Psychiatric: normal affect, normal behavior, oriented to person, oriented to place Hosp A/P (1) Exacerbation of ulcerative colitis Code(s): K51.90 - ULCERATIVE COLITIS, UNSPECIFIED, WITHOUT COMPLICATIONS Status: Acute (2) Migraine Code(s): G43.909 - MIGRAINE, UNSP, NOT INTRACTABLE, WITHOUT STATUS MIGRAINOSUS Status: Chronic (3) Reflux esophagitis Code(s): K21.0 - GASTRO-ESOPHAGEAL REFLUX DISEASE WITH ESOPHAGITIS Status: Chronic (4) Depression Code(s): F32.9 - MAJOR DEPRESSIVE DISORDER, SINGLE EPISODE, UNSPECIFIED Status : Chronic - Plan Pt clinically improving, on IV solu-medrol. Depression mild, stable. Continue PPI for GERD.
[2019-09-08 16:54] LABS: Reference Lab Name PROMETHEUS
--- NOTE | 2019-09-08 17:12 | PRG ---
DATE OF SERVICE: 09/08/2019 SUBJECTIVE: Mr. Carreno has had improvement on steroids. He has had 1 loose stool this morning and is having no abdominal pain currently. No nausea or vomiting. No blood in the stool. OBJECTIVE: VITAL SIGNS: Temperature 97.9, pulse 85, blood pressure 135/84. GENERAL: He is in no acute distress. Alert and oriented x3. LUNGS: Clear to auscultation bilaterally. HEART: Regular rate and rhythm without murmur. ABDOMEN: Soft, nontender, and nondistended. Bowel sounds are present. EXTREMITIES: No lower extremity edema. LABORATORY DATA: White blood cell count 12.6, hemoglobin 13.9, platelets 312, creatinine 0.84. IMPRESSION: Acute exacerbation of chronic ulcerative pancolitis. He has previously been in remission on Entyvio. However, his symptoms have recently flared and endoscopy showed significant inflammation in the right colon. He was started on oral steroids. However, he continues to have significant abdominal pain and diarrhea and weakness and did not feel like he could manage adequate oral intake and hydration, on the oral steroids alone, and was admitted for further care. He previously is very stoic and has few complaints even he has very severe disease endoscopically. RECOMMENDATIONS: 1. We will continue IV methylprednisolone. We can likely transition this back to oral prednisone tomorrow or the next day. 2. I will go ahead and advance to a regular diet. If he tolerates this, then change to prednisone 40 mg p.o. tomorrow and stop the IV steroids. 3. We are awaiting stool studies including Clostridium difficile. His diarrhea is markedly improved and we do not yet have a specimen collected for Clostridium difficile. However, this is one of my primary concerns leading to this admission. 4. Continue mesalamine. Job ID: [id number]
[2019-09-09] MEDS: methylPREDNISolone Sod Succ 40 MG VIAL IVP SCH (05:42)
[2019-09-09] MEDS: Mesalamine DR 400 mg Capsule PO SCH (09:38)
[2019-09-09] MEDS: Venlafaxine HCl XR 75 MG CAP PO SCH (09:39)
[2019-09-09] MEDS: Sodium Chloride 0.9% 1,000 ML IV SCH ×2 (09:42→21:52)
[2019-09-09] MEDS ORDERED: predniSONE 20 MG TAB PO SCH (11:00)
--- NOTE | 2019-09-09 14:45 | PRG ---
DATE OF SERVICE: 09/09/2019 SUBJECTIVE: Mr. Carreno is feeling pretty well today. He is not having any abdominal pain or nausea. He is tolerating his diet. He has had one bowel movement so far today and he said that this was solid with no blood in it. It is a significant improvement from presentation a couple of days ago. OBJECTIVE: VITAL SIGNS: Temperature 97.7, pulse 73, blood pressure 126/77, 96% oxygen saturation on room air. GENERAL: No acute distress. HEART: Regular rate and rhythm. LUNGS: Clear to auscultation bilaterally. ABDOMEN: Bowel sounds present. Soft, nontender to palpation. EXTREMITIES: No peripheral edema. LABORATORY STUDIES: No new labs from this morning. Stool studies show elevated fecal lactoferrin, negative Campylobacter antigen and Shiga toxin, negative stool culture. ASSESSMENT AND PLAN: 1. Ulcerative colitis flare, recent symptom flare was despite recent dose interval reduction on the Entyvio and over a week of outpatient prednisone; however, he has responded very well to IV steroids over the past 3 days. I would recommend transitioning to oral prednisone 40 mg daily tomorrow, and if still feeling well, he could be discharged from the hospital. Continue with mesalamine as well. He will follow up closely in the GI Clinic with Dr. Ga, who is considering further dose interval reduction on the Entyvio to every 4 weeks in the near future. 2. Note, C difficile result is not back since the stool is well-formed, it is likely that the lab is not going to run this. His excellent response to IV steroids argues against C difficile infection. Job ID: [id number]
--- NOTE | 2019-09-09 14:54 | PDOC.HOSPP ---
- Subjective Encounter Date: 09/09/19 Encounter Time: : Subjective: Pt seen for followup re: UC flare. Feels better. Soft stool yesterday. No abdo pain. - Objective Vital Signs & Weight: Vital Signs (12 hours) Temp Pulse Resp BP Pulse Ox 09/09/19 08:00 96 09/09/19 07:37 97.7 F 73 16 126/77 96 Weight Admit Weight 200 lb Weight 200 lb I&O: 09/08/19 09/09/19 09/10/19 06:59 06:59 06:59 Intake Total 2855 Balance 2855 Result Diagrams: 09/08/19 05:09 09/08/19 05:09 Additional Labs: Labs and MARs reviewed by [facility] Hospitalist ROS - Review of Systems Cardiovascular: denies: chest pain, palpitations, orthopnea, paroxysmal noc. dyspnea, edema, light headedness Gastrointestinal: denies: nausea, vomiting, abdominal pain, diarrhea, constipation, melena, hematochezia - Medication Medications: Active Medications Generic Name Dose Route Start Last Admin Trade Name Freq PRN Reason Stop Dose Admin Sodium Chloride 1,000 mls @ 75 mls/hr 09/07/19 19:00 09/09/19 09:42 Normal Saline 0.9% IV 1,000 mls .[id number] NICOLE Administration Mesalamine 2,400 mg 09/08/19 09:00 09/09/19 09:[address] PO 2,400 mg DAILY NICOLE Administration Pantoprazole Sodium 40 mg 09/08/19 09:00 09/09/19 09:39 Protonix PO 40 mg DAILY NICOLE Administration Sertraline HCl 100 mg 09/08/19 09:00 09/09/19 09:39 Zoloft PO 100 mg DAILY NICOLE Administration Venlafaxine HCl 300 mg 09/08/19 09:00 09/09/19 09:39 Effexor Xr PO 300 mg DAILY NICOLE Administration - Exam General Appearance: NAD Eye: PERRL ENT: moist mucosa Neck: supple Heart: RRR Respiratory: CTAB Gastrointestinal: soft, non-tender, non-distended, normal bowel sounds Skin: no rashes Musculoskeletal: no muscle wasting Psychiatric: normal affect, normal behavior Hosp A/P (1) Exacerbation of ulcerative colitis Code(s): K51.90 - ULCERATIVE COLITIS, UNSPECIFIED, WITHOUT COMPLICATIONS Status: Acute (2) Migraine Code(s): G43.909 - MIGRAINE, UNSP, NOT INTRACTABLE, WITHOUT STATUS MIGRAINOSUS Status: Chronic (3) Reflux esophagitis Code(s): K21.0 - GASTRO-ESOPHAGEAL REFLUX DISEASE WITH ESOPHAGITIS Status: Chronic (4) Depression Code(s): F32.9 - MAJOR DEPRESSIVE DISORDER, SINGLE EPISODE, UNSPECIFIED Status : Chronic - Plan Pt tolerated diet, will start prednisone and dc solu-medrol. Depression mild, stable. Continue Protonix for GERD.
[2019-09-10] MEDS: Sodium Chloride 0.9% 1,000 ML IV SCH (00:30)
[2019-09-10 03:24] VITALS: TEMP 97.5
[2019-09-10 06:26] LABS: #Lymphocytes 1.3 thou/uL (1.20-3.40); #Monocytes 0.5 thou/uL (0.11-0.59); #Neutrophils 11.2 thou/uL (1.40-6.50); %Eosinophils 0.1 % (0.0-10.0); %Lymphocytes 10.1 % (21.0-51.0); %Monocytes 3.9 % (0.0-10.0); %Neutrophils 85.8 % (42.0-75.0); Hemoglobin 14.4 g/dL (14.0-18.0); Mean Corpuscular HGB CONC 33.8 g/dL (32.0-36.0); Mean Corpuscular Hemoglobin 31.4 pg (27.0-31.0); Mean Platelet Volume 7.3 fL (7.4-10.4); Platelet Count 301 thou/uL (130-400); RBC Distribution Width 13.1 % (11.5-14.5); Red Blood Cell (RBC) Count 4.57 mill/uL (4.70-6.10); White Blood Cell (WBC) Count 13.1 thou/uL (4.8-10.8)
[2019-09-10 06:43] LABS: Anion Gap 12 mmol/L (10-20); BUN (Urea Nitrogen) 11 mg/dL (8.4-25.7); Calc. Creatinine Clearance 137 mL/min (70-130); Calcium 8.5 mg/dL (7.8-10.44); Carbon Dioxide 24 mmol/L (22-29); Chloride 106 mmol/L (98-107); Estimated GFR-MDRD Greater than 90; Glucose 119 mg/dL (70-105); Potassium 4.2 mmol/L (3.5-5.1); Sodium 138 mmol/L (136-145)
[2019-09-10 07:29] VITALS: BP 134/80
[2019-09-10] MEDS ORDERED: predniSONE 20 MG TAB PO SCH (08:00)
[2019-09-10] MEDS: Venlafaxine HCl XR 75 MG CAP PO SCH (08:16)
[2019-09-10] MEDS: Mesalamine DR 400 mg Capsule PO SCH (08:19)
[2019-09-10 13:15] LABS: Routine O & P Final report (.)
--- NOTE | 2019-09-11 02:45 | DIS ---
DATE OF ADMISSION: 09/07/2019 DATE OF DISCHARGE: 09/10/2019 PRIMARY CARE PROVIDER: Madeline Ramirez MD DISCHARGE DIAGNOSIS: Ulcerative colitis flare. CONDITION OF THE PATIENT ON THE DAY OF DISCHARGE: Stable. I assessed Mr. Carreno on the day of discharge. He denies any chest pain or shortness of breath. No abdominal pain. Diarrhea has resolved. Vital signs are stable. S1 and S2 are heard, regular. Lungs are clear to auscultation bilaterally. CONSULTATIONS DURING THIS HOSPITALIZATION: Gastroenterology, Dr. Corey. DISCHARGE MEDICATIONS: 1. Prednisone 40 mg daily for 1 week followed by tapering 5 mg every week. 2. Lomotil p.r.n. 3. Levsin p.r.n. 4. Folic acid 0.8 mg daily. 5. Lialda 2.4 g daily. 6. Psyllium husk 0.52 g daily. 7. Zoloft 200 mg daily. 8. Venlafaxine 300 mg daily. 9. Ostera one tablet daily. 10. Protonix 40 mg daily. HOSPITAL COURSE: Mr. Carreno is a pleasant 49-year-old gentleman, who was admitted to [facility] on September 07, 2019, for ulcerative colitis flare. He was started on intravenous steroids with improvement in his symptoms. Stool Clostridium difficile toxin test was negative. Preliminary stool culture was negative. Campylobacter antigen and shiga toxin tests were negative. He has been switched to oral steroids and is being discharged home in a stable condition. DIET: Regular. ACTIVITY: No restrictions. DISCHARGE DESTINATION: Home. TIME SPENT: Total amount of time spent coordinating this discharge: 32 minutes. POST ACUTE CARE FOLLOWUP: With primary care provider in 3 days and with Gastroenterology, Dr. Ga in 7 days. Job ID: [id number]
== END 2019-09-10 12:34 | disposition home or self-care (01) | DRG 386 ==
LOC: T4-B 15:51 → OBSVTOIN 15:51 → INTOOBSV 15:51
PROVIDERS: ADMIT Internal Medicine; ATTEND Internal Medicine
DX: K51.00 Ulcerative (chronic) pancolitis without complications (principal); F32.0 Major depressive disorder, single episode, mild; I49.9 Cardiac arrhythmia, unspecified; G43.909 Migraine, unspecified, not intractable, without status migrainosus; K21.0 Gastro-esophageal reflux disease with esophagitis; Z79.899 Other long term (current) drug therapy
CPT/HCPCS: 36415; 80048; 80053; 83630; 85025; 85652; 86140; 87045; 87046; 87177; 87324; 87427; 87449; J2920; J7512

== ENCOUNTER 2020-06-28 12:57 | Outpatient (CLI) | payer BC | END 2020-06-28 12:58 | disposition home or self-care (01) | LOC: BICULT 12:57 | PROVIDERS: ATTEND Internal Medicine Gastroenterology | DX: R93.89 Abnormal findings on diagnostic imaging of other specified body structures (principal); E04.2 Nontoxic multinodular goiter | CPT/HCPCS: 76536 ==

== ENCOUNTER 2020-12-02 08:35 | Day surgery (SDC) | payer BC ==
[~2020-12-02 08:35] MED LIST changes: +Acetaminophen 500 MG TAB PO SCH; -ISOVUE-370 76%-LOCM 1 ML ONE; -Iopamidol 370 76% 50 ML VIAL FS ONE; +Ustekinumab 520 MG in Sodium Chloride 0.9% 250 ML 146 ML IV SCH; +Ustekinumab 520 MG in Sodium Chloride 0.9% 250 ML 250 ML IV SCH; +diphenhydrAMINE 25 MG CAP PO SCH
[2020-12-02] MEDS ORDERED: Sodium Chloride 0.9% 20 ML ONE (08:50)
[2020-12-02 09:52] VITALS: BP 139/85; TEMP 98.1
== END 2020-12-02 12:04 | disposition home or self-care (01) ==
LOC: ONC/OP 08:35
PROVIDERS: ATTEND Internal Medicine Gastroenterology
DX: K51.00 Ulcerative (chronic) pancolitis without complications (principal); Z91.010 Allergy to peanuts
CPT/HCPCS: 96413; J3358; J7050

== ENCOUNTER 2021-03-07 09:08 | Outpatient (CLI) | payer BC | END 2021-03-07 09:09 | disposition home or self-care (01) | LOC: BICULT 09:08 | PROVIDERS: ATTEND Otolaryngology Otolaryngic Allergy | DX: E04.2 Nontoxic multinodular goiter (principal) | CPT/HCPCS: 76536 ==

== ENCOUNTER 2021-04-13 23:07 | Emergency (ER) | payer BC ==
[2021-04-13 23:41] LABS: #Eosinphils 0.1 thou/uL (0.0-0.7); #Lymphocytes 1.1 thou/uL (1.20-3.40); #Monocytes 0.5 thou/uL (0.11-0.59); %Basophils 0.5 % (0.0-1.0); %Eosinophils 1.3 % (0.0-10.0); %Lymphocytes 19.8 % (21.0-51.0); %Monocytes 8.7 % (0.0-10.0); %Neutrophils 69.8 % (42.0-75.0); Hemoglobin 14.2 g/dL (14.0-18.0); Mean Corpuscular HGB CONC 33.9 g/dL (32.0-36.0); Mean Corpuscular Hemoglobin 30.9 pg (27.0-31.0); Mean Platelet Volume 6.4 fL (7.4-10.4); Platelet Count 367 thou/uL (130-400); RBC Distribution Width 12.4 % (11.5-14.5); White Blood Cell (WBC) Count 5.7 thou/uL (4.8-10.8)
[2021-04-14 00:16] LABS: ALT (SGPT) 50 U/L (8-55); AST (SGOT) 38 U/L (5-34); Albumin 3.5 g/dL (3.5-5.0); Alkaline Phosphatase 181 U/L (40-110); Anion Gap 16 mmol/L (10-20); BUN (Urea Nitrogen) 11 mg/dL (8.4-25.7); Bilirubin, Total 0.7 mg/dL (0.2-1.2); Calc. Creatinine Clearance 0 mL/min (70-130); Calcium 8.7 mg/dL (7.8-10.44); Carbon Dioxide 23 mmol/L (22-29); Chloride 100 mmol/L (98-107); Globulin 2.7 g/dL (2.4-3.5); Glucose 118 mg/dL (70-105); Potassium 3.9 mmol/L (3.5-5.1); Protein, Total 6.2 g/dL (6.0-8.3); Sodium 135 mmol/L (136-145)
[2021-04-14] MEDS ORDERED: Iopamidol-370 76% 500 ML 1 ML ONE (10:00)
== END 2021-04-14 01:26 | disposition home or self-care (01) ==
LOC: ERS 23:07
DX: U07.1 COVID-19 (principal); J12.82 Pneumonia due to coronavirus disease 2019; K21.9 Gastro-esophageal reflux disease without esophagitis; K58.9 Irritable bowel syndrome, unspecified; Z79.52 Long term (current) use of systemic steroids; Z79.899 Other long term (current) drug therapy
CPT/HCPCS: 36415; 71275; 80053; 83880; 84484; 85025; Q9967

== ENCOUNTER 2023-01-23 21:17 | Observation (INO) | payer BC ==
[2023-01-23 21:51] LABS: #Eosinphils 0.1 thou/uL (0.0-0.7); #Monocytes 0.4 thou/uL (0.11-0.59); #Neutrophils 3.1 thou/uL (1.40-6.50); %Basophils 0.6 % (0.0-1.0); %Lymphocytes 25.1 % (21.0-51.0); %Monocytes 8.4 % (0.0-10.0); %Neutrophils 64.7 % (42.0-75.0); Hematocrit 34.6 % (42.0-52.0); Hemoglobin 11.7 g/dL (14.0-18.0); Mean Corpuscular HGB CONC 33.8 g/dL (32.0-36.0); Mean Corpuscular Hemoglobin 32.6 pg (27.0-31.0); Mean Corpuscular Volume 96.4 fl (78.0-98.0); Mean Platelet Volume 8.7 fL (7.4-10.4); Platelet Count 228 10x3/uL (130-400); RBC Distribution Width 13.6 % (11.5-14.5); Red Blood Cell (RBC) Count 3.59 mill/uL (4.70-6.10); White Blood Cell (WBC) Count 4.8 10x3/uL (4.8-10.8)
[2023-01-23 22:14] LABS: ALT (SGPT) 32 U/L (8-55); AST (SGOT) 41 U/L (5-34); Albumin 4.7 g/dL (3.5-5.0); Alkaline Phosphatase 88 U/L (40-110); Anion Gap 13 mmol/L (10-20); BUN (Urea Nitrogen) 6 mg/dL (8.4-25.7); Bilirubin, Total 0.3 mg/dL (0.2-1.2); Calc. Creatinine Clearance 0 mL/min (70-130); Calcium 9.5 mg/dL (7.8-10.44); Carbon Dioxide 25 mmol/L (22-29); Chloride 101 mmol/L (98-107); Estimated GFR 83; Globulin 2.4 g/dL (2.4-3.5); Glucose 99 mg/dL (70-105); Potassium 3.8 mmol/L (3.5-5.1); Protein, Total 7.1 g/dL (6.0-8.3); Sodium 135 mmol/L (136-145)
[2023-01-24] MEDS ORDERED: Acetaminophen 500 MG TAB ONE (00:34)
[2023-01-24] MEDS ORDERED: Morphine 4 MG/ML VIAL ONE (01:07)
[2023-01-24] MEDS ORDERED: Ketorolac Tromethamine 30 MG/ML VIAL ONE (01:07)
[2023-01-24] MEDS ORDERED: Vancomycin 1 GM/200 ML (FROZEN) BAG ONE (01:44)
[2023-01-24] MEDS ORDERED: Ampicillin/Sulbactam 3 GM in Sodium Chloride 0.9% 100 ML IVPB SCH (02:00)
[2023-01-24] MEDS ORDERED: Ondansetron PF 4 MG/2 ML Vial IVP PRN (02:11)
[2023-01-24] MEDS ORDERED: Ondansetron ODT 4 MG TAB PO PRN (02:11)
[2023-01-24] MEDS ORDERED: Acetaminophen 325 MG TAB PO PRN (02:11)
[2023-01-24] MEDS ORDERED: Morphine 2 MG/ML VIAL SLOW IVP PRN (02:22)
[2023-01-24] MEDS ORDERED: Ketorolac Tromethamine 30 MG/ML VIAL IVP PRN (02:22)
[2023-01-24 02:51] VITALS: BMI 27.2
[2023-01-24] MEDS ORDERED: Cefepime 1 GM in Sodium Chloride 0.9% 100 ML IVPB SCH (05:00)
[2023-01-24] MEDS ORDERED: VANCOMYCIN (BATCH) 1.25 GM 1.25 GM in Premix Bag 1 BAG IVPB SCH (09:00)
[2023-01-24] MEDS ORDERED: Venlafaxine HCl XR 150 MG CAP PO SCH (09:00)
[2023-01-24] MEDS ORDERED: Sertraline 100 MG TAB PO SCH (09:00)
[2023-01-24] MEDS ORDERED: FLU VACC QS2023-24(6MOS UP)/PF 60 MCG/0.5 ML SYRINGE IM ONE (09:00)
[2023-01-24 09:09] VITALS: BP 112/71; TEMP 97.8
[2023-01-24] MEDS ORDERED: Cefepime 2 GM in Sodium Chloride 0.9% 100 ML IVPB SCH (17:00)
[2023-01-24] MEDS ORDERED: Sacubitril 49 MG/Valsartan 51 MG TABLET PO SCH (21:00)
[2023-01-25] MEDS ORDERED: Spironolactone 25 MG TAB PO SCH (08:00)
[2023-01-25] MEDS ORDERED: RINVOQ 30 MG PO SCH (09:00)
== END 2023-01-24 16:14 | disposition short-term general hospital (02) ==
LOC: ERS 21:17 → T4-A 01-24 01:51
PROVIDERS: ADMIT Student in an Organized Health Care Education/Training Program; ATTEND Internal Medicine
DX: L03.011 Cellulitis of right finger (principal); I50.9 Heart failure, unspecified; K51.90 Ulcerative colitis, unspecified, without complications; F41.9 Anxiety disorder, unspecified; F32.A Depression, unspecified; I45.6 Pre-excitation syndrome; Z98.890 Other specified postprocedural states; Z79.899 Other long term (current) drug therapy; Z91.010 Allergy to peanuts
CPT/HCPCS: 36415; 80053; 83605; 85025; 86140; 87040; 96365; 96375; 96376; G0378; J0295; J0692; J1885; J2270; J3370; J3370-JW; J3490